=== PATIENT | male | born 1950 | race Caucasian/White ===

== ENCOUNTER 2017-01-01 19:09 | Emergency (ER) | payer MEDICARE ==
[~2017-01-01] VITALS: Ht 177.8 cm; Wt 77.3 kg
[2017-01-01 19:12] VITALS: BP 151/67; PULSE 93; RESP 18; O2SAT 93
--- NOTE | 2017-01-01 20:11 | ED.REPORT ---
HPI-General Illness Date of Service Jan 01, 2017 ED Provider: Davie Montelongo DO 66 y/o male with a hx of lung cancer and HTN presents to the ED complaining of constipation, onset 6 days ago. Associates sx include dehydrated. He has used enema in the past and has been using MiraLax recently with little improvement. There are no other complaints at this time. Nursing Notes Stated Complaint: DEHYDRATION, CONSTIPATION/CANCER PT Chief Complaint: General Complaint Nursing Notes Reviewed: Yes Allergies: Coded Allergies: Penicillins (Verified Allergy, Mild, Hives, 01/01/17) esomeprazole (Verified Allergy, Mild, Hives, 01/01/17) isosorbide (Verified Allergy, Mild, suicidal, 01/01/17) Scheduled PRN Magnesium Hydroxide (Milk of Magnesia) 400 Mg/5 Ml Oral.susp 15 ML PO QID PRN PRN For Constipation Metoclopramide (Reglan) 10 Mg Tablet 10 MG PO QID PRN PRN For Nausea General Time Seen by MD: 20:10 Chief Complaint Other (Constipation) Hx Obtained From: Patient Arrived By: Walk-in Sudden in Onset?: No Onset Occurred: 6 days ago Symptom Duration: Since onset Severity: Current: No pain currently Severity: Maximum: No pain Recent Healthcare: No recent doctor visit Similar Sx Previous: Yes Past Medical History Past Medical History Lung cancer Past Surgical History none reported Smoking History Unknown if Ever Smoker Social History Other Social History: Good social support, Ambulatory Status Independent Review of Systems Reports: dehydration Full Review of Systems GI: Reports: Constipation Complete sys rev & neg: except as marked. Physical Exam Vital Signs Vital Signs Date Time Temp Pulse Resp B/P Pulse Ox O2 Delivery O2 Flow Rate FiO2 01/01/17 21:58 84 16 123/54 97 Room Air 01/01/17 21:21 36.8 77 27 131/52 97 Room Air 01/01/17 19:12 36.2 93 18 151/67 93 Room Air Initial VS: Reviewed Head / Eyes: Atraumatic, Normocephalic Extremities: Vascular intact, Neuro intact, No swelling, No tenderness Skin: Warm, Dry, No cyanosis Neurologic: Alert, Oriented, Nonfocal General/Constitutional: Awake, Alert, Cooperative Neck: Atraumatic, Full range of motion Respiratory / Chest: Atraumatic, Breath sounds NL, Breath sounds = bilat, No respiratory distress, No rales, No rhonchi, No wheezing Cardiovascular: Heart rate NL, Regular rhythm, Heart sounds NL, No gallop, No murmurs, No rubs Abdomen: Atraumatic, Soft Mild abdominal tenderness and distention. Back: Atraumatic, Full range of motion Interpretation & Diagnostics Lab Results Interpretation Result Diagram: 01/01/17 2030 01/01/17 2030 Test 01/01/17 20:22 01/01/17 20:30 Hold Urine Received (Received) White Blood Count 11.1th/mm3 (3.8-10.1) Red Blood Count 3.56mil/mm3 (4.40-5.80) Hemoglobin 9.3g/dL (13.8-17.2) Hematocrit 29.8% (41.0-50.0) Mean Corpuscular Volume 83.7fL (81-100) Mean Corpuscular Hemoglobin 26.1pg (27.0-35.0) Mean Corpuscular Hemoglobin Concent 31.2% (32.0-37.0) Red Cell Distribution Width 14.7% (12.3-15.4) Platelet Count 423bil/L (150-400) Neutrophils (%) (Auto) 76.7% (40-74) Lymphocytes (%) (Auto) 10.3% (14-46) Monocytes (%) (Auto) 11.0% (4-12) Eosinophils (%) (Auto) 1.4% (0-5) Basophils (%) (Auto) 0.3% (0-3) Sodium Level 132mEq/L (134-144) Potassium Level 4.3mEq/L (3.5-5.2) Chloride Level 98mEq/L (97-108) Carbon Dioxide Level 24mmol/L (18-29) Blood Urea Nitrogen 10mg/dL (8-27) Creatinine 0.82mg/dL (0.76-1.27) Estimat Glomerular Filtration Rate 100mL/min (>59) Glucose Level 115mg/dL (60-99) Calcium Level 11.3mg/dL (8.5-10.1) Magnesium Level 1.8mg/dL (1.6-2.6) Total Bilirubin 0.2mg/dL (0.0-1.2) Aspartate Amino Transf (AST/SGOT) 22U/L (0-50) Alanine Aminotransferase (ALT/SGPT) 25U/L (0-44) Alkaline Phosphatase 76U/L (25-160) Total Protein 7.1g/dL (6.4-8.4) Albumin 2.9g/dL (3.4-5.0) Lipase 9U/L (13-60) X-Ray Abdominal Interpretation IMPRESSION: 1. Confluent left basilar airspace opacities which may represent consolidation and pneumonia. However, recommend correlation clinically and further evaluation with CT if indicated. 2. Small bilateral pleural effusions versus pleural thickening. Dictated by: Finn Galan M.D. on 01/01/2017 at 20:54 Approved by: Finn Galan M.D. on 01/01/2017 at 20:57 Study: 4 view, Portable Interpretation / Wet Read by: Interpret - Radiologist Re-Eval/Medical Decision Time of Eval: 21:15 Patient Status: Condition improved Re-Evaluation/Progress Note: Rechecked pt. Discussed lab, imaging results and diagnosis. Informed the pt of the plan to discharge. Pt understands and agrees with plan. F/U instructions and RTER warning given. All questions addressed. Counseled Regarding: Diagnosis, Lab results, Need for follow-up, When/why to return to ED Discharge & Departure Primary Impression: Constipation Disposition: Home Discharge Condition All VS Reviewed: Yes Condition: Stable Patient Instructions: Constipation (ED) Additional Instructions: Thank you for entrusting us with your care today. Your lab and imaging results were reassuring. Take Reglan and Milk of Magnesia for constipation. Follow up with your primary care provider for further evaluation. Return to the emergency department in case of new or worsening symptoms. Referrals: OTHER,PHYSICIAN (PCP) [facility] Scribe Attestation Portions of this note were transcribed by Betty Morrison. I, , personally performed the history, physical exam and medical decision-making;I reviewed and confirmed the accuracy of the information in the transcribed note. Signed by Marianna Gifford. 01/01/17 21:37 copies to: [facility] Davie Montelongo DO Jan 01, 2017 20:11 Betty Morrison Jan 01, 2017 20:25
[2017-01-01] MEDS ORDERED: 0.9% Sodium Chloride 1,000 ML IV ONE (20:35)
[2017-01-01 20:47] LABS: BASOPHILS % (AUTO) 0.3 % (0-3); EOSINOPHILS % (AUTO) 1.4 % (0-5); Mean Corpuscular Hemoglobin 26.1 pg (27.0-35.0); Mean Corpuscular Volume 83.7 fL (81-100); NEUTROPHILS % (AUTO) 76.7 % (40-74); Platelet Count 423 bil/L (150-400)
--- NOTE | 2017-01-01 20:58 | DRSVH ---
PROCEDURE: X-RAY ACUTE ABDOMINAL SERIES ([id number]) INDICATIONS: CONSTIPATION TECHNIQUE: One view chest and two views of the abdomen were acquired. COMPARISON: None. FINDINGS: Surgical changes and devices: Postsurgical changes are redemonstrated in the mediastinum. Chest: There are confluent left basilar airspace opacities. Heart size is normal. There is mild sandra nting of the costophrenic angles compatible with small pleural effusions or costophrenic angles. No pneumoperitoneum. Abdomen: Bowel gas pattern is within normal limits without evidence of obstruction. No suspicious c alcifications. Bones: No suspicious bony lesions. IMPRESSION: 1. Confluent left basilar airspace opacities which may represent consolidation and pneumonia. [facility] er, recommend correlation clinically and further evaluation with CT if indicated. 2. Small bilateral pleural effusions versus pleural thickening. Dictated by: Finn Galan M.D. on 01/01/2017 at 20:54 Approved by: Finn Galan M.D. on 01/01/2017 at 20:57
[2017-01-01 21:12] LABS: Magnesium 1.8 mg/dL (1.6-2.6)
[2017-01-01 21:21] VITALS: BP 131/52; PULSE 77; RESP 27; O2SAT 97
[2017-01-01] MEDS ORDERED: METO-301 PO (21:45)
[2017-01-01] MEDS ORDERED: MAGN400O4 PO (21:45)
[2017-01-01 21:58] VITALS: BP 123/54; PULSE 84; RESP 16; O2SAT 97
== END 2017-01-01 21:59 | disposition home or self-care (01) ==
LOC: SED 19:09
DX: K59.00 Constipation, unspecified (principal); I10 Essential (primary) hypertension; Z88.0 Allergy status to penicillin; Z88.8 Allergy status to other drugs, medicaments and biological substances
CPT/HCPCS: 36415; 74022; 80053; 83690; 83735; 85025; 93005; 96360; 99285; J7030

== ENCOUNTER 2017-01-06 02:30 | Emergency (ER) | payer MEDICARE ==
[~2017-01-06] VITALS: Ht 177.8 cm; Wt 77.3 kg
[~2017-01-06 02:30] MED LIST: MAGN400O4 PO; METO-301 PO
[2017-01-06 02:35] VITALS: BP 141/76; PULSE 81; RESP 16; O2SAT 94
--- NOTE | 2017-01-06 02:48 | ED.REPORT ---
HPI-General Illness Date of Service Jan 06, 2017 ED Provider: Pawan Meredith MD The patient is a 66 year old male not on anticoagulants with a medical history including lung cancer and hypertension who presents to the ED with bilateral foot swelling onset today, after spending all day traveling in a car. Associated symptoms include chest pain, abdominal pain, nausea, and constipation (last BM ten days ago). The pain is "sharp" in nature. The patient denies cough, dysuria, back pain, or other symptoms. Nursing Notes Stated Complaint: LOWER LEG PAIN/SWELLING Chief Complaint: Male Abdominal Pain Nursing Notes Reviewed: Yes Allergies: Coded Allergies: Penicillins (Verified Allergy, Mild, Hives, 01/01/17) esomeprazole (Verified Allergy, Mild, Hives, 01/01/17) isosorbide (Verified Allergy, Mild, suicidal, 01/01/17) Scheduled Peg 3350/Na Sulf,Bicarb,Cl/KCl (Colyte with Flavor Packets) 4,000 Ml Soln.recon 4,000 ML PO ONCE Scheduled PRN Magnesium Hydroxide (Milk of Magnesia) 400 Mg/5 Ml Oral.susp 15 ML PO QID PRN PRN For Constipation Metoclopramide (Reglan) 10 Mg Tablet 10 MG PO QID PRN PRN For Nausea Ondansetron ODT (Ondansetron ODT) 8 Mg Tab.rapdis 8 MG PO QID PRN PRN For Nausea General Time Seen by MD: 02:47 Chief Complaint Other (Bilateral Foot Swelling) Hx Obtained From: Patient Arrived By: Walk-in Sudden in Onset?: No Onset Occurred: 5 - 8 hours ago Symptom Duration: Since onset Location: : Abdomen: Chest Quality: Painful, Sharp Severity: Current: Moderate Severity: Maximum: Moderate Pertinent Negative: Relieved by nothing Context Related History: Reports Cancer Recent Healthcare: No recent doctor visit Past Medical History Past Medical History Lung cancer Hypertension Past Surgical History CABG Smoking History Unknown if Ever Smoker Social History Other Social History: Good social support, Ambulatory Status Independent Review of Systems Full Review of Systems Constitutional: Denies: Fever Respiratory: Denies: Non-productive cough, Shortness of breath Cardiovascular: Reports: Chest pain GI: Reports: Abdominal pain, Constipation (Last BM 10 days ago), Nausea Male: Denies Dysuria Musculoskeletal: Reports: Extremity swelling (Bilateral feet) Complete sys rev & neg: except as marked. Physical Exam Vital Signs Vital Signs Date Time Temp Pulse Resp B/P Pulse Ox O2 Delivery O2 Flow Rate FiO2 01/06/17 05:26 36.9 82 18 135/62 93 Room Air 01/06/17 02:35 36.2 81 16 141/76 94 Room Air Initial VS: Reviewed Head / Eyes: Atraumatic, Normocephalic Neck: Supple, Full range of motion Skin: Warm, Dry, No cyanosis Neurologic: Alert, Oriented, Nonfocal Psychiatric: Mood/affect normal, Behavior normal, Normal thought content General/Constitutional: Awake, Alert, No acute distress Behavior: Positive: Anxious Appearance / Presentation: Positive: Ill appearing/not toxic (Chronically), Pale Respiratory / Chest: Breath sounds NL, Breath sounds = bilat, No respiratory distress Anterior chest diffusely tender Patient is splinting with breathing Cardiovascular: Heart rate NL, Regular rhythm, Heart sounds NL, No rubs Lower Ext Edema: Positive: Bilateral 2+ Abdomen: Atraumatic Tenderness/Guarding/Rebound: Positive: Tender diffuse Bowel Sounds / Distention: Positive: Distention moderate Liver is solid and firm to palpation Interpretation & Diagnostics Lab Results Interpretation Result Diagram: 01/06/17 0255 01/06/17 0255 Test 01/06/17 02:55 White Blood Count 11.1th/mm3 (3.8-10.1) Red Blood Count 3.65mil/mm3 (4.40-5.80) Hemoglobin 9.4g/dL (13.8-17.2) Hematocrit 30.4% (41.0-50.0) Mean Corpuscular Volume 83.3fL (81-100) Mean Corpuscular Hemoglobin 25.8pg (27.0-35.0) Mean Corpuscular Hemoglobin Concent 30.9% (32.0-37.0) Red Cell Distribution Width 15.1% (12.3-15.4) Platelet Count 428bil/L (150-400) Neutrophils (%) (Auto) 74.9% (40-74) Lymphocytes (%) (Auto) 9.6% (14-46) Monocytes (%) (Auto) 11.4% (4-12) Eosinophils (%) (Auto) 3.2% (0-5) Basophils (%) (Auto) 0.4% (0-3) Prothrombin Time 16.7sec (8.1-12.5) Prothromb Time International Ratio 1.55ratio Activated Partial Thromboplast Time 26.2sec (22.8-33.0) Sodium Level 132mEq/L (134-144) Potassium Level 4.0mEq/L (3.5-5.2) Chloride Level 99mEq/L (97-108) Carbon Dioxide Level 22mmol/L (18-29) Blood Urea Nitrogen 9mg/dL (8-27) Creatinine 0.84mg/dL (0.76-1.27) Estimat Glomerular Filtration Rate 97mL/min (>59) Glucose Level 104mg/dL (60-99) Calcium Level 11.0mg/dL (8.5-10.1) Magnesium Level 1.8mg/dL (1.6-2.6) Total Bilirubin 0.3mg/dL (0.0-1.2) Aspartate Amino Transf (AST/SGOT) 21U/L (0-50) Alanine Aminotransferase (ALT/SGPT) 21U/L (0-44) Alkaline Phosphatase 73U/L (25-160) Troponin T 0.010ug/L (0.0-0.011) Pro-B-Type Natriuretic Peptide 531.8pg/mL (0-376) Total Protein 7.3g/dL (6.4-8.4) Albumin 3.0g/dL (3.4-5.0) ECG Interpretation ECG Interpretation: Sinus rhythm rate 78 Probable left atrial enlargement Nothing acute Time: 02:59 Interpreted by: ED physician CT Chest Interpretation CONCLUSION: 1. No evidence of pulmonary embolism. Large left lower lobe mass does cause mass effect with narrowing of left lower lobe segmental pulmonary arteries. Mildly enlarged mediastinal and bilateral hilar lymph nodes. 2. Negative for thoracic aortic dissection. 3. Cardiomegaly. CABG surgical changes. Report transmitted to ED by radiologist Dereje Unger M.D. at 01/06/2017 - 4:31:59 AM PDT Study type: CT pulm angiogram Interpretation / Wet Read by: Interpret - Radiologist CT Abd / Pelvis Interpretation CONCLUSION: 1. Normal caliber appendix. Increased attenuation in the appendiceal lumen may relate to retained contrast from a prior study or appendicoliths. No free air, bowel obstruction, or mesenteric inflammation. Air-fluid levels in the transverse and descending colon suggest malabsorption/developing diarrhea. No gross bowel wall thickening is appreciated. 2. Bilateral renal cysts a couple of which are complex with partial rim calcification. 3. Mild prostate enlargement. Mild bladder wall thickening may be chronic related to muscle hypertrophy. Correlate with urinalysis if there is concern for infection. Report transmitted to the ED by radiologist Dereje Unger M.D. at 6 - 4:36:16 AM PDT Study type: Abdominal CT IV contrast Interpretation / Wet Read by: Interpret - Radiologist Re-Eval/Medical Decision Med Decision/Clinical Course 66-year-old with lung cancer presents with chest pain abdominal pain and some leg edema. CT chest is negative for pulmonary embolus but a large tumor in the left base with hilar adenopathy. Abdomen x-ray shows no significant abnormality. He does have significant constipation both by history and causing his discomfort at the moment. He is off to [facility] by plane, and will begin a Colyte prep when he arrives. Discharged in stable condition. Source of Hx: Old records Time of Eval: 04:47 Patient Status: Condition improved Re-Evaluation/Progress Note: Discussed with patient lab and CT results, diagnosis, and plan for discharge. Follow-up and return to the ER instructions given. Patient agrees with plan for care and all questions were addressed. Counseled Regarding: Diagnosis, Lab results, Need for follow-up, When/why to return to ED Discharge & Departure Primary Impression: Generalized abdominal pain Additional Impressions: Constipation Constipation type: drug induced constipation Qualified Code: K59.03 - Drug induced constipation Lung cancer Laterality: left Lung location: lower lobe of lung Qualified Code: C34.32 - Malignant neoplasm of lower lobe, left bronchus or lung Disposition: Home Discharge Condition All VS Reviewed: Yes Condition: Improved Patient Instructions: Acute Abdominal Pain (ED), Constipation (ED) Additional Instructions: When you get to [place], take your Colyte prep as directed. Continue your pain meds as directed. Zofran up to four times daily if needed for nausea. Return if any immediate issues. Referrals: OTHER,PHYSICIAN (PCP) Scribe Attestation Portions of this note were transcribed by Alicia Barry. I, Dr. Meredith, personally performed the history, physical exam, and medical decision-making; I reviewed and confirmed the accuracy of the information in the transcribed note. Signed by: Marianna Hu, 01/06/2017, 05:10 Pawan Meredith MD Jan 06, 2017 02:48 ALICIA BARRY Jan 06, 2017 02:54
[2017-01-06] MEDS ORDERED: 0.9% Sodium Chloride 1,000 ML IV ONE (02:53)
[2017-01-06] MEDS ORDERED: Ondansetron 2 mg/mL 2 mL Inj ONE (03:11)
[2017-01-06] MEDS ORDERED: Ondansetron 2 mg/mL 2 mL Inj IVPUSH ONE (03:15)
[2017-01-06 03:17] LABS: BASOPHILS % (AUTO) 0.4 % (0-3); EOSINOPHILS % (AUTO) 3.2 % (0-5); MONOCYTES % (AUTO) 11.4 % (4-12); Mean Corpuscular Hemoglobin 25.8 pg (27.0-35.0); Mean Corpuscular Volume 83.3 fL (81-100); NEUTROPHILS % (AUTO) 74.9 % (40-74); Platelet Count 428 bil/L (150-400)
[2017-01-06] MEDS: HYDROmorphone 1 mg/mL Inj IVPUSH PRN ×2 (03:27→04:42)
[2017-01-06 03:33] LABS: INR 1.55 ratio
[2017-01-06 03:38] LABS: TROPONIN T 0.01 ug/L (0.0-0.011)
[2017-01-06 03:51] LABS: Magnesium 1.8 mg/dL (1.6-2.6)
[2017-01-06] MEDS ORDERED: PEG4000S2 PO (04:54)
[2017-01-06] MEDS ORDERED: ONDA8TAB10 PO (04:56)
[2017-01-06 05:26] VITALS: BP 135/62; PULSE 82; RESP 18; O2SAT 93
--- NOTE | 2017-01-06 08:09 | DRSVH ---
PROCEDURE: CT ANGIO CHEST PULMONARY EMBOLISM ([id number]) INDICATIONS: abdo and chest pain TECHNIQUE: After the administration of intravenous contrast, 2 mm thick sections acquired from the pulmonary api andrea to the posterior costophrenic angles. 3-dimensional maximum intensity projection (MIP) coronal a nd sagittal reformats were then acquired through the thorax. For radiation dose reduction, the follo wing was used: automated exposure control, adjustment of mA and/or kV according to patient size. COMPARISON: None. FINDINGS: Image quality: Good Pulmonary arteries: Pulmonary arteries are normal in size, and demonstrate no intraluminal filling d efects to suggest central pulmonary embolism. Lungs and pleura: There is abnormal density in the left lower lobe. Mass and consolidative or trauma could have similar appearance in this patient with history of lung cancer. The appearance of displace d vessels and bronchi however is consistent with at least some portion of this pain lung mass. There is a small left pleural effusion. Both lungs show changes of a suggest chronic lung disease possible usual interstitial pneumonitis. Mediastinum: Heart size is thought to be mildly enlarged, without pericardial effusion. There is med iastinal adenopathy in the subcarinal area aorticopulmonary window pretracheal retrocaval area and berny th chikis.. Thoracic aorta is normal in caliber and enhancement. Esophagus is normal in caliber, with out hiatal hernia. Bones and chest wall: Previous sternotomy for CABG procedure. No suspicious bony lesions. Ribs and t horacic spine appear intact throughout. . No axillary or supraclavicular adenopathy. Abdomen: Visualized upper abdominal solid organs appear normal in the early arterial phase of enhanc ement. IMPRESSION: 1. No evidence for pulmonary embolus. 2. Lack of aeration in the left lower lobe secondary to mass and probably compressed lung. 3. Adenopathy in the chikis and mediastinum. Dictated by: Vipul Chambers M.D. on 01/06/2017 at 8:07 on 01/06/2017 at 8:01 this report corresponds to the findings of the preliminary NSR report. Approved by: Vipul Chambers M.D. on 01/06/2017 at 8:07
--- NOTE | 2017-01-06 08:17 | DRSVH ---
PROCEDURE: CT ABDOMEN AND PELVIS WITH CONTRAST ([id number]) INDICATIONS: abdo and chest pain TECHNIQUE: After the administration of intravenous contrast, 5 mm thick sections acquired from the diaphragm to the symphysis. 5 mm coronal and sagittal reformats were acquired. For radiation dose reduction, the following was used: automated exposure control, adjustment of mA and/or kV according to patient daniel cuevas. COMPARISON: [facility], CR, XR ABD ACUTE SERIES 3VW, 01/01/2017, 20:38. FINDINGS: Image quality: Excellent. ABDOMEN: Lung bases: Prominent mass in the left lower lobe of the lung with adenopathy between the aorta and l eft atrium. Minimal left pleural effusion.. Heart size is normal. Solid organs: Liver and spleen are normal in size and enhancement. Gallbladder is within normal myers its. Biliary system is non dilated. Pancreas enhances normally. No adrenal nodules. Kidneys demon strate normal size and enhancement, without hydronephrosis. Bilateral renal cysts. Peritoneum and bowel: Bowel loops demonstrate normal wall thickness. There several fluid-filled slig htly prominent bowel loops but obstruction is not thought to be present. There is some fecalization o f small bowel contents suggesting slow movement of contents. No free fluid or air. Normal appendix wi th either appendicoliths or contrast from older studies or oral ingestion of radiopaque substance is Nodes and vessels: No retroperitoneal or mesenteric adenopathy by size criteria. Aorta and inferior vena cava are normal in size. Miscellaneous: Fatty umbilical hernia is present. PELVIS: Genitourinary: Bladder wall thickness is mildly thickened. Prostate is enlarged. There is central in dentation of the floor of the bladder most likely from enlarged prostate and less likely from bladder lesion. Miscellaneous: No inguinal hernias or adenopathy. Bones: No suspicious bony lesions. No vertebral body compression fractures. IMPRESSION: 1. Generous amount of fecal material but obstruction is not thought to be occurring. The amount of fe andrea in the colon and intermixed air in small bowel and suggest constipation or slow movement. 2. Enlarged prostate and bowel wall hypertrophy. 3. No mass or obstruction or stone or inflammation is identified. Dictated by: Vipul Chambers M.D. on 01/06/2017 at 8:07 this report corresponds to the findings of the preliminary NSR report. Approved by: Vipul Chambers M.D. on 01/06/2017 at 8:15
== END 2017-01-06 05:10 | disposition home or self-care (01) ==
LOC: SED 02:30
DX: K59.03 Drug induced constipation (principal); C34.32 Malignant neoplasm of lower lobe, left bronchus or lung; T50.905A Adverse effect of unspecified drugs, medicaments and biological substances, initial encounter; X58.XXXA Exposure to other specified factors, initial encounter; Y92.9 Unspecified place or not applicable; Y93.9 Activity, unspecified; Y99.9 Unspecified external cause status; I10 Essential (primary) hypertension; Z95.1 Presence of aortocoronary bypass graft; Z88.0 Allergy status to penicillin; Z88.8 Allergy status to other drugs, medicaments and biological substances
CPT/HCPCS: 36415; 71275; 74177; 80053; 83735; 83880; 84484; 85025; 85610; 85730; 93005; 96361; 96374; 96375; 96376; 99285; J1170; J2405; J7030; Q9967